=== PATIENT | male | born 1935 | race Asian ===

== ENCOUNTER → 2018-09-08 20:06 | Emergency (ER) | payer MEDICARE, BC ==
[~2018-09-08 20:06] MED LIST: Potassium Chlor TAB* 20 MEQ TAB.ER PO ONE
--- OUTSIDE RECORDS SUMMARY | 2018-09-08 20:15 | XMS REPORT | Continuity of Care Document ---
:1935 External Reference #:[id number] Author Name Liudmila Juarez Care Team Providers Name Role Phone Pan Fitzgerald MD Primary Care Physician Unavailable Payers Date Identification Numbers Payment Provider Subscriber Policy Number: [id number] Medicare Brittaney P Crowley PayID: [id number] [address] [place] [address] Effective: 2004 Policy Number: [id number] Medicare Carlos Albertoat Misael Adairma Expires: 2018 PayID: [id number] [address] [place] [address] Policy Number: [id number] [facility] Brittaney P Crowley PayID: [id number] [address] [address] [place] [address] Problems Active Problems Provider Date Type 2 diabetes mellitus Mart Decker DO [facility] Onset: 05/27/2016 Solitary sacroiliitis Chayo Hernandez M.D. 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: 01/29/2018 pelvic region and thigh Family History Date Family Member(s) Observation Comments Onset: (age 55 General Asthma Paternal uncle Years) from asthma General Diabetes General Heart Disease General Hypertension General Cancer : (age 58 Father due to Cancer of Years) Throat : (1991) Mother due to Natural Broke hip (age 86 Years) causes Social History Type Date Description Comments Sex Unknown Marital Status Lives With Occupation Supervisor Paint [employer] Tobacco Use Start: Unknown Quit smoking 1958 smoke brief as a teenager 4 years ETOH Use Currently consumes 1-2 week wine or alcohol scotch Tobacco Use Start: Unknown End: Patient is a former Unknown smoker Recreational Drug Use Denies Drug Use Smoking Status Reviewed: 08/29/18 Patient is a former smoker Exercise Type/Frequency Walks daily 1 hr 30 mins to 1 hr Exercise Type/Frequency Outdoor Work Garden/ Yardwork Allergies, Adverse Reactions, Alerts Active Allergies Reaction Severity Comments Date Amlodipine edema 08/10/2017 Inactive Allergies NKDA 05/16/2016 Medications Active Medications SIG Qnty Indications Ordering Date Provider Valsartan 1 by mouth 90tabs Mart Torres 07/04/2016 320mg Tablets every night DO BRANNON Decker Hydrochlorothiazide 1 by mouth 90tabs Mart Torres 07/04/2016 25mg Tablets every day DO BRANNON Decker Aspir-81 1 by mouth Unknown 81mg Tablets DR every day Vitamin B-12 1 by mouth Unknown 1000mcg Tablets every day Metformin HCL 1 by mouth Pan Fitzgerald MD 1000mg Tablets twice a day Oxybutynin Chloride ER 1 by mouth [place], 5mg Tablets every day ER 24HR Simvastatin 1 by mouth Pan Fitzgerald MD 20mg Tablets every day PM Vitamin D3 Unknown History Medications Meloxicam 1 by mouth every 30tabs M54.5 Chayo Hernandez, 01/29/2018 - 15mg Tablets day M.D. 07/24/2018 Isosorbide 1 by mouth every 30tabs Mart Decker, 06/30/2016 - Mononitrate ER day DO [facility] 06/30/2016 30mg Tablets ER 24HR Amlodipine Besylate 1 by mouth every 30tabs I10 Mart Decker, 2016 - 5mg day DO [facility] 06/24/2016 Tablets Vitamin D-3 1 by mouth every Unknown - 2000Unit day 08/09/2017 Capsules Clotrimazole/Betameth apply daily as Unknown - asone Dipropionate needed 01/28/2018 1-0.05% Cream Fluocinonide-E apply a thin film Unknown - 0.05% of the cream to 01/28/2018 Cream affetced area as needed. Losartan 1 tablet po daily Pan Fitzgerald MD - Potassium/Hydrochloro 07/04/2016 thiazide 100-25mg Tablets Verapamil HCL ER 1 by mouth every I10 Pan Fitzgerald MD - 240mg day 05/27/2016 Caps ER 24HR Vital Signs Date Vital Result Comment 08/29/2018 11:12am Height 71 inches 5'11" Weight 176.00 lb BP Systolic 150 mmHg BP Diastolic 90 mmHg Respiratory Rate 15 /min Body Temperature 97.8 F Pain Level 1 BMI (Body Mass Index) 24.5 kg/m2 07/25/2018 2:05pm Height 71 inches 5'11" Weight 176.00 lb Heart Rate 72 /min BP Systolic Sitting 160 mmHg Rue reg cuff BP Diastolic Sitting 80 mmHg Rue reg cuff BP Systolic Standing 170 mmHg Rue reg cuff BP Diastolic Standing 78 mmHg Rue reg cuff BMI (Body Mass Index) 24.5 kg/m2 02/07/2018 11:44am Height 71 inches 5'11" Weight 173.00 lb BP Systolic 140 mmHg BP Diastolic 65 mmHg Respiratory Rate 17 /min Pain Level 7 BMI (Body Mass Index) 24.1 kg/m2 01/29/2018 1:20pm Height 71 inches 5'11" Weight 179.00 lb Heart Rate 64 /min BP Systolic 132 mmHg BP Diastolic 66 mmHg BMI (Body Mass Index) 25.0 kg/m2 08/10/2017 3:40pm Height 70 inches 5'10" Weight 179.00 lb Heart Rate 66 /min BP Systolic Sitting 146 mmHg lue reg cuff BP Diastolic Sitting 72 mmHg lue reg cuff BP Systolic Standing 142 mmHg BP Diastolic Standing 72 mmHg Respiratory Rate 16 /min BMI (Body Mass Index) 25.7 kg/m2 07/26/2016 7:59am Height 70 inches 5'10" Weight 177.00 lb shoes Heart Rate 72 /min BP Systolic Sitting 164 mmHg Lue reg cuff BP Diastolic Sitting 84 mmHg Lue reg cuff BP Systolic Standing 160 mmHg Lue reg cuff BP Diastolic Standing 82 mmHg Lue reg cuff Respiratory Rate 16 /min BMI (Body Mass Index) 25.4 kg/m2 05/27/2016 9:54am Height 70 inches 5'10" Weight 176.00 lb without shoes Heart Rate 94 /min BP Systolic 160 mmHg Rue reg cuff BP Diastolic 80 mmHg Rue reg cuff BP Systolic Sitting 160 mmHg Lue reg cuff BP Diastolic Sitting 76 mmHg Lue reg cuff BP Systolic Standing 162 mmHg Lue reg cuff BP Diastolic Standing 74 mmHg Lue reg cuff Respiratory Rate 17 /min BMI (Body Mass Index) 25.3 kg/m2 Procedures Date Code Description Status 07/25/2018 36358 EKG Tracing & Interpretation Completed 02/05/2018 570698703 Bone Mineral Density Test Completed 09/11/2017 28994 ECHO Transthoracic, Real-Time 2D With Doppler And Completed Color Flow 09/11/2017 28629 ECHO Transthoracic, Real-Time 2D With Doppler And Completed Color Flow 08/10/2017 96681 EKG Tracing & Interpretation Completed 06/24/2016 56252 ECHO Stress Test Incl Perf Contiuous ekg Monitoring Completed W/Phys Superv 05/27/2016 57110 EKG Tracing & Interpretation Completed 05/10/2013 11352 EKG, Interpretation Only Completed 03/22/2013 96765 EKG, Interpretation Only Completed 05/20/2011 79542 Rad Exam; Ankle Limited Completed 05/20/2011 64562 Rad Exam; Tib-Fib Completed 05/20/2011 18907 Rad Exam; Knee, Ap&L Completed 03/28/2011 55399 Rad Exam; Hip Unilat Completed 03/28/2011 02910 Rad Exam; Pelvis Completed 03/28/2011 63486 Rad Exam; Spine Lumbosacral Completed Encounters Type Date Location Provider Dx Diagnosis Office Visit 07/25/2018 [facility] Mart Decker, I10 Essential ( primary) 2:20p Of [facility] DO FACC hypertension Office Visit 02/07/2018 Orthopedic Chayo Hernandez, M16.11 Unilateral primary 11:15a [facility] osteoarthritis, right hip M16.12 Unilateral primary osteoarthritis, left hip M25.551 Pain in right hip M25.552 Pain in left hip M54.5 Low back pain Office Visit 01/29/2018 Orthopedic Chayo M16.12 Unilateral primary 1:00p [facility] Hernandez osteoarthritis, left C.M.AMiriam hip M16.11 Unilateral primary osteoarthritis, right hip M54.5 Low back pain M46.1 Sacroiliitis, not elsewhere classified M85.80 Oth disrd of bone density and structure, unspecified site Office Visit 08/10/2017 4:00p [facility] Mart SMiriam I34.0 Nonrheumatic mitral Of [facility] DO Jeronimo (valve) FACC insufficiency I10 Essential (primary) hypertension Office Visit 07/26/2016 8:20a [facility] Mart S. I10 Essential ( primary) Of [facility] DO Jeronimo hypertension FACC E11.9 Type 2 diabetes mellitus without complications E78.5 Hyperlipidemia, unspecified I34.0 Nonrheumatic mitral (valve) insufficiency Office Visit 05/27/2016 [facility] Mart S. R94.31 Abnormal 10:40a Cardiology DO Jeronimo electrocardiogram [facility] FACC [ECG] [EKG] I10 Essential (primary) hypertension R07.9 Chest pain, unspecified E11.9 Type 2 diabetes mellitus without complications E78.5 Hyperlipidemia, unspecified Office Visit 03/22/2013 4:02p [facility] 995.91 [facility] LOPEZ 595.0 Cystitis Acute 250.00 Diabetes Mellitus W/O Compl Type II Or Unspec Controlled 401.9 Hypertension Unspec Office Visit 06/03/2011 11:30a Jean Arias 924.5 Contusion Lower [facility] Aceves Limb Part Unspec C.M.A. Office Visit 05/20/2011 11:45a Jean Arias 924.5 Contusion Lower [facility] Aceves Limb Part Unspec C.M.A. 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
--- NOTE | 2018-09-08 20:27 | ED ---
HPI Cardiac - HPI Summary HPI Summary: Patient is a 82 y/o M presenting to ED via EMS with complaints of high BP, right sided ear pain and facial spasms. He reports Sx onset this morning, . BP is reported to have been 177/90 initially and progressively sherrell to 202 systolic. Patient called his pediatric critical care nurse office and was advised to come to ED for further evaluation. He is on valsartan. He reports pain at ear has been intermittent. He denies CP, SOB, N/V, DON. Patient notes that he feels somewhat anxious. At present, BP is 184/95. He notes that he has not taken his BP medications tonight. On triage, pain is denied, nothing is noted to aggravate/ alleviate Sx. Home medications and allergies are reviewed. - History of Current Complaint Chief Complaint: EDHypertension Stated Complaint: HYPERTENSION PER EMS Time Seen by Provider: 09/08/18 20:18 Hx Obtained From: Patient Onset/Duration: Started Hours Ago, Still Present Timing: Lasting Hours Current Severity: None Pain Intensity: 0 Pain Scale Used: 0-10 Numeric Aggravating Factor(s): Nothing Alleviating Factor(s): Nothing Associated Signs and Symptoms: Positive: Anxiety, Other: - positive - high BP, right sided ear pain, right facial spasms. Negative: Chest Pain, Headaches, Shortness of Breath, Nausea, Vomiting - Allergy/Home Medications Allergies/Adverse Reactions: Allergies Allergy/AdvReac Type Severity Reaction Status Date / Time amlodipine Allergy Edema Verified 09/08/18 20:10 PMH/Surg Hx/FS Hx/Imm Hx Endocrine/Hematology History: Reports: Hx Diabetes Denies: Hx Thyroid Disease, Hx Anemia Cardiovascular History: Reports: Hx Hypertension Respiratory History: Denies: Hx Asthma, Hx Chronic Obstructive Pulmonary Disease (COPD) GI History: Denies: Hx Jaundice, Hx Ulcer History: Reports: Hx Benign Prostatic Hyperplasia, Other Problems/ Disorders Musculoskeletal History: Denies: Hx Rheumatoid Arthritis, Hx Osteoporosis, Hx Scoliosis Sensory History: Reports: Hx Contacts or Glasses Denies: Hx Hearing Problem Opthamlomology History: Reports: Hx Contacts or Glasses Neurological History: Denies: Hx Headaches, Other Neuro Impairments/Disorders - Surgical History Surgery Procedure, Year, and Place: 1998 BILATERAL CATARACT EXTRACTIONS [facility] [place]. LEFT EAR SURGERY [facility] [place]. bladder surgery Vor Hx Anesthesia Reactions: No Infectious Disease History: No Infectious Disease History: Denies: Hx Clostridium Difficile, Hx Hepatitis, Hx Human Immunodeficiency Virus (HIV), Hx of Known/Suspected MRSA, Hx Shingles, Hx Tuberculosis, Hx Known/ Suspected VRE, Hx Known/Suspected VRSA, History Other Infectious Disease, Traveled Outside the [place] in Last 30 Days - Family History Known Family History: Positive: Other - neg: anasthesia reaction - Social History Alcohol Use: Occasionally Alcohol Amount: 3-4 DRINKS/WEEK Hx Substance Use: No Substance Use Type: Reports: None Hx Tobacco Use: Yes Smoking Status (MU): Former Smoker Type: Cigarettes Amount Used/How Often: FEW CIGS/DAYAS TEENAGER Length of Time of Smoking/Using Tobacco: 2 YRS Have You Smoked in the Last Year: No Review of Systems Positive: Ear Ache - right Cardiovascular: Other - positive - high BP Negative: Chest Pain Negative: Shortness Of Breath Negative: Vomiting, Nausea Musculoskeletal: Other - positive - right facial spasm Negative: Headache Positive: Anxious All Other Systems Reviewed And Are Negative: Yes Physical Exam - Summary Physical Exam Summary: VITAL SIGNS: Reviewed. GENERAL: Patient is a well-developed and nourished male who is lying comfortable in the stretcher. Patient is not in any acute respiratory distress. HEAD AND FACE: No signs of trauma. No ecchymosis, hematomas or skull depressions. No sinus tenderness. EYES: PERRLA, EOMI x 2, No injected conjunctiva, no nystagmus. EARS: Hearing grossly intact. Ear canals and tympanic membranes are within normal limits. MOUTH: Oropharynx within normal limits. NECK: Supple, trachea is midline, no adenopathy, no JVD, no carotid bruit, no c- spine tenderness, neck with full ROM CHEST: Symmetric, no tenderness at palpation LUNGS: Clear to auscultation bilaterally. No wheezing or crackles. CVS: Regular rate and rhythm, S1 and S2 present, no murmurs or gallops appreciated. ABDOMEN: Soft, non-tender. No signs of distention. No rebound no guarding, and no masses palpated. Bowel sounds are normal. EXTREMITIES: FROM in all major joints, no edema, no cyanosis or clubbing. NEURO: Alert and oriented x 3. No acute neurological deficits. Speech is normal and follows commands. SKIN: Dry and warm Triage Information Reviewed: Yes Vital Signs On Initial Exam: Initial Vitals Temp Pulse Resp BP Pulse Ox 98.6 F 72 18 205/101 97 09/08/18 20:10 09/08/18 20:10 09/08/18 20:10 09/08/18 20:10 09/08/18 20:10 Vital Signs Reviewed: Yes Diagnostics - Vital Signs Vital Signs Temp Pulse Resp BP Pulse Ox 09/08/18 20:10 98.6 F 72 18 205/101 97 - Laboratory Result Diagrams: 09/08/18 21:19 09/08/18 21:19 Lab Statement: Any lab studies that have been ordered have been reviewed, and results considered in the medical decision making process. - EKG 2008 Cardiac Rate: NL - rate of 69 BPM EKG Rhythm: Sinus Rhythm Summary of EKG Findings: EKG showed sinus rhythm with rate of 69 BPM, first degree AV block, no acute ischemic changes. Re-Evaluation - Re-Evaluation First Eval Re-Evaluation Time: 22:17 Comment: Patient had taken his nightly BP medications in ED and his BP is improved to 152/77. Results of labs and tests were discussed with the patient. Patient will be discharged to home and follow up with PCP and pediatric critical care nurse within three days. Strict return precautions given. Patient agreeable with this plan. Disposition - Course Course Of Treatment: Patient is a 82 y/o M presenting to ED via EMS with complaints of high BP, right sided ear pain and facial spasms. He reports Sx onset this morning, 09/08/18. BP is reported to have been 177/90 initially and progressively sherrell to 202 systolic. Patient called his pediatric critical care nurse office and was advised to come to ED for further evaluation. He denies CP, SOB, N/V, DON. Physical exam is unremarkable. EKG showed sinus rhythm with rate of 69 BPM, first degree AV block, no acute ischemic changes. Labs showed Hgb 13.5, Hct 40, MCV 79, MPV 7.3, sodium 130, potassium 3.3, chloride 95, glucose 114. During ED course, patient received Klor Con Er Tab 20 meq PO. Patient had taken his nightly BP medications in ED and his BP is improved to 152/77. Results of labs and tests were discussed with the patient. Patient will be discharged to home and follow up with PCP and pediatric critical care nurse within three days. Strict return precautions given. Patient agreeable with this plan. - Diagnoses Provider Diagnoses: HTN (hypertension) Discharge - Sign-Out/Discharge Documenting (check all that apply): Patient Departure - discharge Patient Received Moderate/Deep Sedation with Procedure: No - Discharge Plan Condition: Stable Disposition: HOME Patient Education Materials: Hypertension (ED) Referrals: Pan Fitzgerald MD [Primary Care Provider] - 3 Days Additional Instructions: RETURN TO ED FOR ANY NEW OR WORSENING SYMPTOMS. FOLLOW UP WITH YOUR PRIMARY CARE PHYSICIAN AND EYELET MACHINE OPERATOR WITHIN THREE DAYS. - Attestation Statements Document Initiated by Scribe: Yes Documenting Scribe: TOYA DRISCOLL Provider For Whom Bobbyibe is Documenting (Include Credential): JUAN DAVID ECHOLS MD Scribe Attestation: ITOYA, scribed for JUAN DAVID ECHOLS MD on 09/08/18 at 2312. Status of Scribe Document: Ready
[2018-09-08 21:28] LABS: ABS Basophils 0.1 10^3/ul (0-0.2); ABS Eosinophils 0.1 10^3/ul (0-0.6); ABS Lymphocytes 1.1 10^3/ul (1.0-4.8); ABS Monocytes 0.6 10^3/ul (0-0.8); ABS Neutrophils 5.7 10^3/ul (1.5-7.7); Hematocrit 40 % (42-52); Hemoglobin 13.5 g/dL (14.0-18.0); Lymphocyte % 14.8 %; Mean Corpuscular HGB Conc 34 g/dL (31-36); Mean Corpuscular Hemoglobin 27 pg (27-31); Mean Corpuscular Volume 79 fL (80-94); Mean Platelet Volume 7.3 fL (7.4-10.4); Platelet Count 254 10^3/uL (150-450); Red Blood Count 5.01 10^6 /uL (4.18-5.48); Red Cell Distribution Width 14 % (10-15); White Blood Count 7.5 10^3/uL (3.5-10.8)
[2018-09-08 21:48] LABS: Albumin 3.8 g/dL (3.2-5.2); Albumin/Globulin Ratio 1.4 (1-3); BUN/Creatinine Ratio 9.8 (8-20); Calcium 9.3 mg/dL (8.6-10.3); EGFR African American 95.5 (>60); Globulin 2.8 g/dL (2-4); Potassium 3.3 mmol/L (3.5-5.0); Total Bilirubin 0.5 mg/dL (0.2-1.0); Total Protein 6.6 g/dL (6.4-8.9)
[2018-09-08 22:17] VITALS: BP 152/77
== END | disposition home or self-care (01) ==
LOC: ED 20:06
DX: I10 Essential (primary) hypertension (principal); E11.9 Type 2 diabetes mellitus without complications; N40.0 Benign prostatic hyperplasia without lower urinary tract symptoms; Z79.899 Other long term (current) drug therapy; Z88.8 Allergy status to other drugs, medicaments and biological substances; Z87.891 Personal history of nicotine dependence
CPT/HCPCS: 36415; 80053; 85025; 93005; 99283; A9270-GY